=== PATIENT | female | born 1980 | race Caucasian/White ===

== ENCOUNTER 2020-01-31 18:23 | Emergency (ER) | payer BC ==
[~2020-01-31] VITALS: Ht 170.2 cm; Wt 113.4 kg
[~2020-01-31 18:23] MED LIST: ACETAMINOPHEN-1 EAC1 PO; BCP; MICROGESTIN1 EAC1 PO; NORCO 5-325 TA1 EACH PO; ROBAXIN500 MG PO
[2020-01-31 19:40] LABS: ABSOLUTE LYMPHOCYTES 1.8 thou/uL (0.8-5.3); ABSOLUTE MONOCYTES 0.5 thou/uL (0.0-1.2); BASOPHILS 0.5 %; EOSINOPHILS 0.2 %; HEMATOCRIT 38.8 % (37.0-47.0); HEMOGLOBIN 13.1 gm/dL (12.0-15.0); LYMPHOCYTES 33.1 %; MCH 28.2 pg (26.0-34.0); MCHC 33.7 g/dL (28.0-37.0); MCV 83.6 fL (80.0-100.0); MPV 6.7 fl. (7.2-11.1); NUCLEATED RBCS 0 /100WBC; PLATELET COUNT* 231 thou/uL (150-400); POLYS 56.2 %; RBC 4.63 mil/uL (4.20-5.00); RDW-CV 13.9 % (10.5-14.5); WBC 5.4 thou/uL (4.0-11.0)
[2020-01-31 19:42] LABS: CREATININE 0.9 mg/dL (0.6-1.3); POTASSIUM 3.3 mmol/L (3.5-5.1)
[2020-01-31 19:47] LABS: TOTAL BILIRUBIN 0.8 mg/dL (<0.1-1.0); TOTAL PROTEIN 6.9 g/dL (6.4-8.2)
[2020-01-31 21:23] LABS: INFLUENZA A ANTIGEN Negative (Negative); INFLUENZA B ANTIGEN Negative (Negative)
[2020-01-31] MEDS ORDERED: PREDNISONE 20 M20 MG PO (21:31)
[2020-01-31] MEDS ORDERED: AUGMENTIN 875-1 EACH PO (21:31)
[2020-01-31 21:39] VITALS: BP 132/76
== END 2020-01-31 21:41 | disposition home or self-care (01) ==
LOC: M.ERS 18:23
PROVIDERS: Nurse Practitioner Family
DX: U07.1 COVID-19 (principal); R11.2 Nausea with vomiting, unspecified; R51.9 Headache, unspecified